=== PATIENT | female | born 1950 ===

== ENCOUNTER 2017-06-08 01:36 | Inpatient (IN) | payer MEDICARE, OTHER ==
[2017-06-08] MEDS ORDERED: Aspirin 325 mg EC Tablets PO STA (01:59)
--- NOTE | 2017-06-08 01:59 | C.PDOC ---
History Of Present Illness pt presents with left chest wall discomfort, occasionally radiating towards her neck on the left side. No f/c/n/v. heavy lifting. Speaking in complete sentences. Time Seen by Provider: 06/08/17 01:58 Chief Complaint (Nursing): Chest Pain History Per: Patient History/Exam Limitations: no limitations Onset/Duration Of Symptoms: Days Current Symptoms Are (Timing): Still Present Context: Other Severity: Severe Pain Scale Rating Of: 10 Recent travel outside of the [place]: No Additional History Per: EMS Past Medical History Vital Signs: Last Vital Signs Temp 97.8 F 06/08/17 01:47 Pulse 91 H 06/08/17 01:47 Resp 20 06/08/17 01:47 BP 166/89 H 06/08/17 01:47 Pulse Ox 99 06/08/17 02:33 - Medical History PMH: HTN, Hypercholesterolemia Family History: States: No Known Family Hx - Social History Hx Tobacco Use: No Hx Alcohol Use: No Hx Substance Use: No - Immunization History Hx Tetanus Toxoid Vaccination: No Hx Influenza Vaccination: No Hx Pneumococcal Vaccination: No Physical Exam - Physical Exam Appears: Non-toxic Skin: Warm, Dry Head: Normacephalic Eye(s): bilateral: Normal Inspection Oral Mucosa: Moist Neck: Supple Chest: Symmetrical Cardiovascular: Rhythm Regular Respiratory: No Rales, No Rhonchi, No Wheezing Gastrointestinal/Abdominal: Soft, No Tenderness, No Distention Back: No Normal Inspection Extremity: No Normal ROM Extremity: Bilateral: Atraumatic Pulses: Left Dorsalis Pedis: Normal, Right Dorsalis Pedis: Normal Neurological/Psych: Oriented x3, Normal Speech, Normal Cognition Gait: Steady ED Course And Treatment - Laboratory Results Result Diagrams: 06/08/17 02:20 06/08/17 02:20 ECG: Interpreted By Me, Viewed By Me ECG Rhythm: Sinus Rhythm (81), Nonspecific Changes O2 Sat by Pulse Oximetry: 99 Pulse Ox Interpretation: Normal - Radiology CXR: Interpreted by Me, Viewed By Me Disposition Discussed With : Miguelito Up Comment: accepted the pt on his service and took over the care at 3:11 AM Doctor Will See Patient In The: ED Counseled Patient/Family Regarding: Studies Performed, Diagnosis - Disposition Disposition: HOSPITALIZED Disposition Time: 02:26 Condition: FAIR Forms: [employer] ([place]ian) - POA Present On Arrival: Poor Glycemic Control - Clinical Impression Clinical Impression: Chest pain, Non-ST elevated myocardial infarction Decision To Admit - Pt Status Changed To: Hospital Disposition Of: Inpatient - Admit Certification Admit to Inpatient:: After my assessment, the patient will require hospitalization for at least two midnights. This is because of the severity of symptoms shown, intensity of services needed, and/or the medical risk in this patient being treated as an outpatient. - InPatient: Physician Admission Certification: I certify that this patient requires 2 or more midnights of care for the following reason:: After my assessment, the patient will require hospitalization for at least two midnights. This is because of the severity of symptoms shown, intensity of services needed, and/or the medical risk in this patient being treated as an outpatient. - . Bed Request Type: Telemetry Admitting Physician: Miguelito Up Patient Diagnosis: Chest pain, Non-ST elevated myocardial infarction
[2017-06-08] MEDS ORDERED: Aspirin 325 mg EC Tablets PO ONE (02:08)
[2017-06-08 02:27] LABS: BASO # 0.1 K/uL (0.0-0.2); EOS # 0.1 K/uL (0.0-0.7); EOS % 1.1 % (0.0-4.0); HEMOGLOBIN 13.3 g/dL (11.0-16.0); LYMPH # 2.9 K/uL (1.0-4.3); LYMPH % 32.1 % (20.0-40.0); MEAN CELL VOLUME 82.3 fL (81.0-99.0); MEAN CORPUSCULAR HEMOGLOBIN 27.8 pg (27.0-31.0); MEAN CORPUSCULAR HGB CONC 33.8 g/dL (33.0-37.0); MONO # 0.6 K/uL (0.0-0.8); MONO % 6.4 % (0.0-10.0); NEUT # 5.4 K/uL (1.8-7.0); NEUT % 59.4 % (50.0-75.0); NRBC % 0.1 % (0.0-2.0); RBC 4.77 Mil/uL (3.80-5.20); RED CELL DISTRIBUTION WIDTH 14.6 % (11.5-14.5); WHITE BLOOD COUNT 9.1 K/uL (4.8-10.8)
[2017-06-08 02:38] LABS: ALB/GLOB RATIO 1.1 (1.0-2.1); ALBUMIN 4.1 g/dL (3.5-5.0); ALT/SGPT 32 U/L (9-52); AST/SGOT 32 U/L (14-36); BLOOD UREA NITROGEN 10 mg/dL (7-17); CALCIUM 9.2 mg/dl (8.6-10.4); GFR AFRICAN-AMERICAN > 60; GFR NON-AFRICAN AMERICAN > 60
[2017-06-08 02:49] LABS: PROTHROMBIN TIME 11.6 SECONDS (9.7-12.2)
[2017-06-08 02:55] LABS: B-TYPE NATRIURETIC PEPTIDE 102 pg/mL (0-900)
[2017-06-08 03:58] LABS: URINE BACTERIA RARE (<OCC); URINE BILIRUBIN NEGATIVE (NEGATIVE); URINE CLARITY Clear (Clear); URINE COLOR Colorless (YELLOW); URINE GLUCOSE (UA) NORMAL (Normal); URINE LEUKOCYTE ESTERASE TRACE Leu/uL (Negative); URINE PROTEIN NEGATIVE (NEGATIVE); URINE UROBILINOGEN NORMAL mg/dL (0.2-1.0)
[2017-06-08 04:02] LABS: URINE BLOOD NEGATIVE (NEGATIVE)
--- NOTE | 2017-06-08 04:12 | CP.PCM.HP ---
<Neris Jarvis - Last Filed: 06/08/17 05:58> History of Present Illness - History of Present Illness History of Present Illness: CC: Chest pain 66 year old female with history of hypertension, hyperlipidemia and anxiety presents to the ED today complains of left sided chest pain. Patient reports her chest pain started this afternoon after 4pm when she was moving some furnitures at home. She describes the pain as burning in quality, radiates to her mid chest and left arm. Patient took aspirin and Dexilant at home which did not alleviate the pain. The chest became worse around 11pm which prompted patient to come to the ED. She had a stress test done many years ago and it was negative. Patient also reports to have shortness of breath associated with this chest pain, but she is unsure of its her anxiety or the chest pain that is causing the symptom. Patient denies headache, dizziness, fever, chills, nausea, vomiting or urinary symptoms. PMD: Dr. Snyder in [place] PMHx: HTN, HLD PSHx: knee replacement Allergy: none Social: social alcohol drinker, denies tobacco or other drug use Family Hx: Mother of [place] at age 70. Father had [place] around 70 years old, DM Medication: Dexilant, atorvastatin, bisoprolol, HCTZ, amlodipine, benazepril, ibuprofen Present on Admission - Present on Admission Any Indicators Present on Admission: No Review of Systems - Constitutional Constitutional: As Per HPI. absent: Chills, Fever - EENT Eyes: As Per HPI. absent: Blind Spots, Blurred Vision Ears: As Per HPI. absent: Abnormal Hearing, Dizziness Nose/Mouth/Throat: As Per HPI. absent: Nasal Congestion, Nose Pain - Breasts Breasts: As Per HPI - Cardiovascular Cardiovascular: As Per HPI, Chest Pain, Chest Pain at Rest, Dyspnea. absent: Diaphoresis, Leg Edema, Lightheadedness, Syncope - Respiratory Respiratory: As Per HPI, Dyspnea. absent: Cough, Wheezing - Gastrointestinal Gastrointestinal: As Per HPI. absent: Abdominal Pain, Nausea, Vomiting - Genitourinary Genitourinary: As Per HPI. absent: Change in Urinary Stream, Flank Pain - Reproductive: Female Reproductive:Female: As Per HPI - Menstruation Menstruation: As Per HPI - Musculoskeletal Musculoskeletal: As Per HPI. absent: Deformity, Joint Swelling - Integumentary Integumentary: As Per HPI. absent: Acne, Change in Nails - Neurological Neurological: As Per HPI. absent: Dizziness, Numbness - Psychiatric Psychiatric: As Per HPI, Anxiety - Endocrine Endocrine: As Per HPI - Hematologic/Lymphatic Hematologic: As Per HPI Past Patient History - Past Social History Smoking Status: Never Smoked - CARDIAC Hx Hypercholesterolemia: Yes Hx Hypertension: Yes - PSYCHIATRIC Hx Substance Use: No - SURGICAL HISTORY Other/Comment: right knee replacement - ANESTHESIA Hx Anesthesia: Yes Hx Anesthesia Reactions: No Meds Allergies/Adverse Reactions: Allergies Allergy/AdvReac Type Severity Reaction Status Date / Time No Known Allergies Allergy Unverified 06/08/17 01:51 Physical Exam - Constitutional Appears: Well, Non-toxic, No Acute Distress - Head Exam Head Exam: ATRAUMATIC - Eye Exam Eye Exam: EOMI, Normal appearance - ENT Exam ENT Exam: Mucous Membranes Moist - Neck Exam Neck exam: Positive for: Normal Inspection - Respiratory Exam Respiratory Exam: Clear to Auscultation Bilateral, NORMAL BREATHING PATTERN. absent: Wheezes, Respiratory Distress - Cardiovascular Exam Cardiovascular Exam: REGULAR RHYTHM, +S1, +S2 - GI/Abdominal Exam GI & Abdominal Exam: Normal Bowel Sounds, Soft. absent: Tenderness - Extremities Exam Extremities exam: Positive for: normal inspection. Negative for: pedal edema - Neurological Exam Neurological exam: Alert, Oriented x3 - Psychiatric Exam Psychiatric exam: Normal Affect, Normal Mood - Skin Skin Exam: Dry, Intact, Normal Color, Warm Results - Vital Signs Recent Vital Signs: Last Vital Signs Temp 97.8 F 06/08/17 01:47 Pulse 91 H 06/08/17 01:47 Resp 20 06/08/17 01:47 BP 166/89 H 06/08/17 01:47 Pulse Ox 99 06/08/17 03:14 - Labs Result Diagrams: 06/08/17 02:20 06/08/17 02:20 Labs: Laboratory Results - last 24 hr 06/08/17 06/08/17 06/08/17 01:59 02:20 02:20 WBC 9.1 RBC 4.77 Hgb 13.3 Hct 39.2 MCV 82.3 MCH 27.8 MCHC 33.8 RDW 14.6 H Plt Count 324 MPV 8.0 Neut % (Auto) 59.4 Lymph % (Auto) 32.1 [place] % (Auto) 6.4 Eos % (Auto) 1.1 Baso % (Auto) 1.0 Neut # (Auto) 5.4 Lymph # (Auto) 2.9 [place] # (Auto) 0.6 Eos # (Auto) 0.1 Baso # (Auto) 0.1 PT 11.6 INR 1.0 APTT 29 Sodium Potassium Chloride Carbon Dioxide Anion Gap BUN Creatinine Est GFR ( Amer) Est GFR (Non-Af Amer) Random Glucose Calcium Total Bilirubin AST ALT Alkaline Phosphatase Troponin I NT-Pro-B Natriuret Pep Total Protein Albumin Globulin Albumin/Globulin Ratio Urine Color Colorless Urine Clarity Clear Urine pH 6.0 Ur Specific [place] 1.001 L Urine Protein Negative Urine Glucose (UA) Normal Urine Ketones Negative Urine Blood Negative Urine Nitrate Negative Urine Bilirubin Negative Urine Urobilinogen Normal Ur Leukocyte Esterase Trace Urine WBC (Auto) 1 Urine RBC (Auto) < 1 Urine Bacteria Rare 06/08/17 02:20 WBC RBC Hgb Hct MCV MCH MCHC RDW Plt Count MPV Neut % (Auto) Lymph % (Auto) [place] % (Auto) Eos % (Auto) Baso % (Auto) Neut # (Auto) Lymph # (Auto) [place] # (Auto) Eos # (Auto) Baso # (Auto) PT INR APTT Sodium 140 Potassium 3.6 Chloride 102 Carbon Dioxide 21 L Anion Gap 21 H BUN 10 Creatinine 0.7 Est GFR ( Amer) > 60 Est GFR (Non-Af Amer) > 60 Random Glucose 108 H Calcium 9.2 Total Bilirubin 0.5 AST 32 ALT 32 Alkaline Phosphatase 131 H Troponin I 0.2070 H* NT-Pro-B Natriuret Pep 102 Total Protein 7.7 Albumin 4.1 Globulin 3.7 Albumin/Globulin Ratio 1.1 Urine Color Urine Clarity Urine pH Ur Specific [place] Urine Protein Urine Glucose (UA) Urine Ketones Urine Blood Urine Nitrate Urine Bilirubin Urine Urobilinogen Ur Leukocyte Esterase Urine WBC (Auto) Urine RBC (Auto) Urine Bacteria Assessment & Plan - Assessment and Plan (Free Text) Assessment: NSTEMI -Troponin 0.207, repeats pending -EKG shows slight T wave inversion on lead 3 -Nitroglycerin topical given -ASA 325mg -Plavix 75mg -Bisoprolol, lisinopril -Weight base heparin -Oxygen via NC -Cardiology consulted, Dr. Hyman help appreciated Anxiety -Xanax 0.25mg po Hypertension -Amlodipine 5mg -Bisoprolol/HCT 2.5/6.25mg -Lisinopril 20mg Hyperlipidemia -Crestor 5mg Prophylactic measures -Protonix -Heparin Discussed with attending physician <Miguelito Up - Last Filed: 06/08/17 07:42> Results - Vital Signs Recent Vital Signs: Last Vital Signs Temp 98.3 F 06/08/17 07:30 Pulse 71 06/08/17 07:30 Resp 17 06/08/17 07:30 BP 101/47 L 06/08/17 07:30 Pulse Ox 98 06/08/17 07:30 - Labs Result Diagrams: 06/08/17 02:20 06/08/17 02:20 Labs: Laboratory Results - last 24 hr 06/08/17 06/08/17 06/08/17 01:59 02:20 02:20 WBC 9.1 RBC 4.77 Hgb 13.3 Hct 39.2 MCV 82.3 MCH 27.8 MCHC 33.8 RDW 14.6 H Plt Count 324 MPV 8.0 Neut % (Auto) 59.4 Lymph % (Auto) 32.1 [place] % (Auto) 6.4 Eos % (Auto) 1.1 Baso % (Auto) 1.0 Neut # (Auto) 5.4 Lymph # (Auto) 2.9 [place] # (Auto) 0.6 Eos # (Auto) 0.1 Baso # (Auto) 0.1 PT 11.6 INR 1.0 APTT 29 Sodium Potassium Chloride Carbon Dioxide Anion Gap BUN Creatinine Est GFR ( Amer) Est GFR (Non-Af Amer) Random Glucose Calcium Total Bilirubin AST ALT Alkaline Phosphatase Troponin I NT-Pro-B Natriuret Pep Total Protein Albumin Globulin Albumin/Globulin Ratio Urine Color Colorless Urine Clarity Clear Urine pH 6.0 Ur Specific [place] 1.001 L Urine Protein Negative Urine Glucose (UA) Normal Urine Ketones Negative Urine Blood Negative Urine Nitrate Negative Urine Bilirubin Negative Urine Urobilinogen Normal Ur Leukocyte Esterase Trace Urine WBC (Auto) 1 Urine RBC (Auto) < 1 Urine Bacteria Rare 06/08/17 02:20 WBC RBC Hgb Hct MCV MCH MCHC RDW Plt Count MPV Neut % (Auto) Lymph % (Auto) [place] % (Auto) Eos % (Auto) Baso % (Auto) Neut # (Auto) Lymph # (Auto) [place] # (Auto) Eos # (Auto) Baso # (Auto) PT INR APTT Sodium 140 Potassium 3.6 Chloride 102 Carbon Dioxide 21 L Anion Gap 21 H BUN 10 Creatinine 0.7 Est GFR ( Amer) > 60 Est GFR (Non-Af Amer) > 60 Random Glucose 108 H Calcium 9.2 Total Bilirubin 0.5 AST 32 ALT 32 Alkaline Phosphatase 131 H Troponin I 0.2070 H* NT-Pro-B Natriuret Pep 102 Total Protein 7.7 Albumin 4.1 Globulin 3.7 Albumin/Globulin Ratio 1.1 Urine Color Urine Clarity Urine pH Ur Specific [place] Urine Protein Urine Glucose (UA) Urine Ketones Urine Blood Urine Nitrate Urine Bilirubin Urine Urobilinogen Ur Leukocyte Esterase Urine WBC (Auto) Urine RBC (Auto) Urine Bacteria Attending/Attestation - Attestation I have personally seen and examined this patient.: Yes I have fully participated in the care of the patient.: Yes I have reviewed all pertinent clinical information: Yes Notes (Text): NSTEMI with some pain/symptoms at time of evaluation, inferior t inversion noted , h/o htn, anxiety, hyperlipidimia. Plan Plavix loading ASA Heparin dirp Continue betablocker Continue home meds unless hypotensive, including statins. Cardiology consult for possible need of cath
[2017-06-08] MEDS ORDERED: Nitroglycerin 2% Ointment Foilpak UD TOP ONE (04:56)
[2017-06-08] MEDS ORDERED: Heparin25000 units/250ml 1/2NS 25,000 UNITS/250 ML BAG IV PRN (04:56)
[2017-06-08] MEDS: Heparin25000 units/250ml 1/2NS 25,000 UNITS/250 ML BAG IV SCH (05:56)
--- NOTE | 2017-06-08 08:23 | RAD ---
Chest x-ray single frontal view History: Chest pain. Comparison: 06/08/2017 Findings: Mild venous congestion. Biapical pleural thickening with upper lobe granulomatous changes. Small nodular density at the right lung base may represent prominent vessel on end. Tortuous ectatic aorta. Calcification at the aortic knob. Top normal heart size. Degenerative changes in the spine and shoulders. Impression: Mild venous congestion. Biapical pleural thickening with upper lobe granulomatous changes. Small nodular density at the right lung base may represent prominent vessel on end. Tortuous ectatic aorta. Calcification at the aortic knob. Top normal heart size.
[2017-06-08 08:49] LABS: CK-MB 2.99 ng/mL (0.0-3.38)
[2017-06-08 08:52] LABS: TROPONIN I 0.18 ng/mL (0.00-0.120)
[2017-06-08] MEDS: Pantoprazole 40 mg EC Tab PO SCH (09:56)
[2017-06-08] MEDS: Bisoprolol-HCTZ 2.5-6.25 mg Tab PO SCH (09:56)
[2017-06-08] MEDS ORDERED: Enoxaparin 40 mg Syringe SC SCH (10:00)
[2017-06-08] MEDS ORDERED: DEXILANT 60 MG PO SCH (10:00)
[2017-06-08 16:30] LABS: TROPONIN I 0.22 ng/mL (0.00-0.120)
[2017-06-08 16:54] LABS: CK-MB 2.77 ng/mL (0.0-3.38)
--- NOTE | 2017-06-08 17:08 | CP.PCM.CON ---
<Sumit Reyes - Last Filed: 06/08/17 20:10> History of Present Illness - History of Present Illness History of Present Illness: PGY [address] Hyman's cardiology service: Consult reason: Chest pain/NSTEMI Patient is 66 year old female, with PMHx of hypertension, hyperlipidemia and anxiety, presented to the ED on 06/07/17 complaining of left sided chest pain. Her chest pain started after moving "heavy furniture around home." Describes the pain as "burning/dull pain - like someone punched me in the chest" which radiated to her left chest, left arm, and jaw. Patient took aspirin and Dexilant at home which did not alleviate the pain. The chest pain worsened throughout the evening which prompted patient to come to the ED. Reports shortness of breath associated with this chest pain, but she is unsure of its her anxiety or the chest pain that is causing the symptom. Patient denies headache, dizziness, fever, chills, nausea, vomiting or urinary symptoms. Pt seen and examined at bedside surrounded by family in room 557B. Patient found lying in bed comfortably. She admits chest pain improved since presentation to the ED but admits still feeling "dull painful sensation in her chest" that no longer radiates. Pain worsened with palpation of the chest but not with exertion. Denies palpitations, shortness of breath at rest or exertion , or lower extremity edema. Admits history of stress test "15-20 years ago" after having bout of chest pain at that time. Denies following up with materials inspector recently. PMD: Dr. Snyder in [place] PMHx: HTN, HLD PSHx: knee replacement Allergy: none Social: social alcohol drinker, denies tobacco or other drug use Family Hx: Mother of NH at age 70. Father had NH around 70 years old, DM Medication: Dexilant, atorvastatin, bisoprolol, HCTZ, amlodipine, benazepril, ibuprofen Review of Systems - Constitutional Constitutional: absent: Anorexia, Chills, Fever - EENT Eyes: absent: Change in Vision - Cardiovascular Cardiovascular: Chest Pain. absent: Dyspnea, Dyspnea on Exertion, Leg Edema - Respiratory Respiratory: absent: Cough, Dyspnea, Dyspnea on Exertion - Gastrointestinal Gastrointestinal: absent: Abdominal Pain, Nausea, Vomiting - Genitourinary Genitourinary: absent: Dysuria - Musculoskeletal Musculoskeletal: absent: Numbness, Tingling - Integumentary Integumentary: absent: Wounds, Jaundice - Neurological Neurological: absent: Tingling, Weakness - Psychiatric Psychiatric: absent: Anxiety - Endocrine Endocrine: absent: Fatigue, Palpitations Past Patient History - Past Medical History & Family History Past Medical History?: Yes - Past Social History Smoking Status: Never Smoked - CARDIAC Hx Cardiac Disorders: Yes Hx Hypercholesterolemia: Yes Hx Hypertension: Yes - PULMONARY Hx Respiratory Disorders: No - NEUROLOGICAL Hx Neurological Disorder: No - HEENT Hx HEENT Problems: No - RENAL Hx Chronic Kidney Disease: No - ENDOCRINE/METABOLIC Hx Endocrine Disorders: No - HEMATOLOGICAL/ONCOLOGICAL Hx Blood Disorders: No - INTEGUMENTARY Hx Dermatological Problems: No - MUSCULOSKELETAL/RHEUMATOLOGICAL Hx Musculoskeletal Disorders: Yes Hx Arthritis: Yes Hx Falls: No - GASTROINTESTINAL Hx Gastrointestinal Disorders: Yes Hx Gastroesophageal Reflux: Yes - GENITOURINARY/GYNECOLOGICAL Hx Genitourinary Disorders: No - PSYCHIATRIC Hx Psychophysiologic Disorder: Yes Hx Anxiety: Yes Hx Substance Use: No - SURGICAL HISTORY Hx Surgeries: Yes Hx Orthopedic Surgery: Yes (left arm fracture) Other/Comment: right knee replacement - ANESTHESIA Hx Anesthesia: Yes Hx Anesthesia Reactions: Yes (nausea and vomiting) Hx Malignant Hyperthermia: No Has any member of the family had a problem w/ anesthesia?: No Meds Allergies/Adverse Reactions: Allergies Allergy/AdvReac Type Severity Reaction Status Date / Time No Known Allergies Allergy Unverified 06/08/17 01:51 - Medications Medications: Current Medications Amlodipine Besylate (Norvasc) 5 mg PO DAILY [facility] Last Admin: 06/08/17 09:56 Dose: 5 mg Aspirin (Aspirin) 325 mg PO DAILY [facility] Bisoprolol Fumarate/HCTZ (Ziac 2.5-6.25 Mg) 1 tab PO DAILY [facility] Last Admin: 06/08/17 09:56 Dose: 1 tab Clopidogrel Bisulfate (Plavix) 75 mg PO DAILY [facility] Heparin Sodium/Sodium Chloride (Heparin 03535 Units/250ml 1/2 Normal Saline) 25 ,000 units in 250 mls @ 10.886 mls/hr IV .[id number] [facility]; 12 UNITS/KG/HR PRN Reason: Protocol Last Admin: 06/08/17 05:56 Dose: 12 units/kg/hr, 10.886 mls/hr Lisinopril (Zestril) 20 mg PO DAILY [facility] Last Admin: 06/08/17 09:56 Dose: 20 mg Morphine Sulfate (Morphine) 2 mg IV Q6 PRN PRN Reason: Other Nitroglycerin (Nitrostat Sl Tab) 0.4 mg SL Q5M PRN PRN Reason: Other Pantoprazole Sodium (Protonix Ec Tab) 40 mg PO DAILY [facility] Last Admin: 06/08/17 09:56 Dose: 40 mg Rosuvastatin Calcium (Crestor) 5 mg PO [facility] Physical Exam - Additional Findings Additional findings: - Constitutional Appears: Well, Non-toxic, No Acute Distress - Head Exam Head Exam: ATRAUMATIC - Eye Exam Eye Exam: EOMI, Normal appearance - ENT Exam ENT Exam: Mucous Membranes Moist - Neck Exam Neck exam: Positive for: Normal Inspection - no jvd appreciated - Respiratory Exam Respiratory Exam: Clear to Auscultation Bilateral, NORMAL BREATHING PATTERN. absent: Wheezes, Respiratory Distress - Cardiovascular Exam Cardiovascular Exam: REGULAR RHYTHM, +S1, +S2 - GI/Abdominal Exam GI & Abdominal Exam: Normal Bowel Sounds, Soft. absent: Tenderness - Extremities Exam Extremities exam: Positive for: normal inspection. Negative for: pedal edema - Neurological Exam Neurological exam: Alert, Oriented x3 - Psychiatric Exam Psychiatric exam: Normal Affect, Normal Mood - Skin Skin Exam: Dry, Intact, Normal Color, Warm Results - Vital Signs Recent Vital Signs: Last Vital Signs Temp 97.9 F 06/08/17 16:13 Pulse 65 06/08/17 16:13 Resp 18 06/08/17 16:13 BP 103/68 06/08/17 16:13 Pulse Ox 97 06/08/17 16:13 - Labs Result Diagrams: 06/08/17 02:20 06/08/17 02:20 Labs: Laboratory Results - last 24 hr 06/08/17 06/08/17 06/08/17 01:59 02:20 02:20 WBC 9.1 RBC 4.77 Hgb 13.3 Hct 39.2 MCV 82.3 MCH 27.8 MCHC 33.8 RDW 14.6 H Plt Count 324 MPV 8.0 Neut % (Auto) 59.4 Lymph % (Auto) 32.1 Cameron % (Auto) 6.4 Eos % (Auto) 1.1 Baso % (Auto) 1.0 Neut # (Auto) 5.4 Lymph # (Auto) 2.9 Cameron # (Auto) 0.6 Eos # (Auto) 0.1 Baso # (Auto) 0.1 PT 11.6 INR 1.0 APTT 29 Sodium Potassium Chloride Carbon Dioxide Anion Gap BUN Creatinine Est GFR ( Amer) Est GFR (Non-Af Amer) Random Glucose Calcium Total Bilirubin AST ALT Alkaline Phosphatase Total Creatine Kinase CK-MB (Mass) Troponin I NT-Pro-B Natriuret Pep Total Protein Albumin Globulin Albumin/Globulin Ratio Urine Color Colorless Urine Clarity Clear Urine pH 6.0 Ur Specific [place] 1.001 L Urine Protein Negative Urine Glucose (UA) Normal Urine Ketones Negative Urine Blood Negative Urine Nitrate Negative Urine Bilirubin Negative Urine Urobilinogen Normal Ur Leukocyte Esterase Trace Urine WBC (Auto) 1 Urine RBC (Auto) < 1 Urine Bacteria Rare 06/08/17 06/08/17 06/08/17 02:20 08:16 12:29 WBC RBC Hgb Hct MCV MCH MCHC RDW Plt Count MPV Neut % (Auto) Lymph % (Auto) Cameron % (Auto) Eos % (Auto) Baso % (Auto) Neut # (Auto) Lymph # (Auto) Cameron # (Auto) Eos # (Auto) Baso # (Auto) PT INR APTT 56 H D Sodium 140 Potassium 3.6 Chloride 102 Carbon Dioxide 21 L Anion Gap 21 H BUN 10 Creatinine 0.7 Est GFR ( Amer) > 60 Est GFR (Non-Af Amer) > 60 Random Glucose 108 H Calcium 9.2 Total Bilirubin 0.5 AST 32 ALT 32 Alkaline Phosphatase 131 H Total Creatine Kinase 217 H CK-MB (Mass) 2.99 Troponin I 0.2070 H* 0.1800 H* NT-Pro-B Natriuret Pep 102 Total Protein 7.7 Albumin 4.1 Globulin 3.7 Albumin/Globulin Ratio 1.1 Urine Color Urine Clarity Urine pH Ur Specific [place] Urine Protein Urine Glucose (UA) Urine Ketones Urine Blood Urine Nitrate Urine Bilirubin Urine Urobilinogen Ur Leukocyte Esterase Urine WBC (Auto) Urine RBC (Auto) Urine Bacteria 06/08/17 15:51 WBC RBC Hgb Hct MCV MCH MCHC RDW Plt Count MPV Neut % (Auto) Lymph % (Auto) Cameron % (Auto) Eos % (Auto) Baso % (Auto) Neut # (Auto) Lymph # (Auto) Cameron # (Auto) Eos # (Auto) Baso # (Auto) PT INR APTT Sodium Potassium Chloride Carbon Dioxide Anion Gap BUN Creatinine Est GFR ( Amer) Est GFR (Non-Af Amer) Random Glucose Calcium Total Bilirubin AST ALT Alkaline Phosphatase Total Creatine Kinase 253 H CK-MB (Mass) 2.77 Troponin I NT-Pro-B Natriuret Pep Total Protein Albumin Globulin Albumin/Globulin Ratio Urine Color Urine Clarity Urine pH Ur Specific [place] Urine Protein Urine Glucose (UA) Urine Ketones Urine Blood Urine Nitrate Urine Bilirubin Urine Urobilinogen Ur Leukocyte Esterase Urine WBC (Auto) Urine RBC (Auto) Urine Bacteria Assessment & Plan - Assessment and Plan (Free Text) Plan: NSTEMI Admit to tele -Troponin 0.207, 0.18, 0.22 -EKG (06/08/17) shows slight T wave inversion on lead 3, No ST elevation appreciated -Heparin Drip -ASA 325mg -Plavix 75mg -Bisoprolol/Lisinoprin Pt for cardiac cath @ ~ 3pm on 06/09/17 - pt NPO after breakfast - heparin drip to run until cardiac cath Hypertension -Amlodipine 5mg -Bisoprolol/HCT 2.5/6.25mg -Lisinopril 20mg Hyperlipidemia -Crestor 5mg Sumit Reyes PGY-[address] Hyman <Luis Manuel Hyman - Last Filed: 06/08/17 23:40> Meds - Medications Medications: Current Medications Acetaminophen (Tylenol 325mg Tab) 650 mg PO Q6 PRN PRN Reason: Pain, Mild (1-3) Last Admin: 06/08/17 21:10 Dose: 650 mg Amlodipine Besylate (Norvasc) 5 mg PO DAILY [facility] Last Admin: 06/08/17 09:56 Dose: 5 mg Aspirin (Aspirin) 325 mg PO DAILY [facility] Bisoprolol Fumarate/HCTZ (Ziac 2.5-6.25 Mg) 1 tab PO DAILY [facility] Last Admin: 06/08/17 09:56 Dose: 1 tab Clopidogrel Bisulfate (Plavix) 75 mg PO DAILY [facility] Heparin Sodium/Sodium Chloride (Heparin 37313 Units/250ml 1/2 Normal Saline) 25 ,000 units in 250 mls @ 10.886 mls/hr IV .[id number] [facility]; 12 UNITS/KG/HR PRN Reason: Protocol Last Admin: 06/08/17 05:56 Dose: 12 units/kg/hr, 10.886 mls/hr Lisinopril (Zestril) 20 mg PO DAILY [facility] Last Admin: 06/08/17 09:56 Dose: 20 mg Morphine Sulfate (Morphine) 2 mg IV Q6 PRN PRN Reason: Other Nitroglycerin (Nitrostat Sl Tab) 0.4 mg SL Q5M PRN PRN Reason: Other Pantoprazole Sodium (Protonix Ec Tab) 40 mg PO DAILY [facility] Last Admin: 06/08/17 09:56 Dose: 40 mg Rosuvastatin Calcium (Crestor) 5 mg PO HS [facility] Last Admin: 06/08/17 21:11 Dose: 5 mg Results - Vital Signs Recent Vital Signs: Last Vital Signs Temp 97.9 F 06/08/17 16:13 Pulse 65 06/08/17 16:13 Resp 18 06/08/17 16:13 BP 103/68 06/08/17 16:13 Pulse Ox 97 06/08/17 16:13 - Labs Result Diagrams: 06/08/17 02:20 06/08/17 02:20 Labs: Laboratory Results - last 24 hr 06/08/17 06/08/17 06/08/17 01:59 02:20 02:20 WBC 9.1 RBC 4.77 Hgb 13.3 Hct 39.2 MCV 82.3 MCH 27.8 MCHC 33.8 RDW 14.6 H Plt Count 324 MPV 8.0 Neut % (Auto) 59.4 Lymph % (Auto) 32.1 Cameron % (Auto) 6.4 Eos % (Auto) 1.1 Baso % (Auto) 1.0 Neut # (Auto) 5.4 Lymph # (Auto) 2.9 Cameron # (Auto) 0.6 Eos # (Auto) 0.1 Baso # (Auto) 0.1 PT 11.6 INR 1.0 APTT 29 Sodium Potassium Chloride Carbon Dioxide Anion Gap BUN Creatinine Est GFR ( Amer) Est GFR (Non-Af Amer) Random Glucose Calcium Total Bilirubin AST ALT Alkaline Phosphatase Total Creatine Kinase CK-MB (Mass) Troponin I NT-Pro-B Natriuret Pep Total Protein Albumin Globulin Albumin/Globulin Ratio Urine Color Colorless Urine Clarity Clear Urine pH 6.0 Ur Specific [place] 1.001 L Urine Protein Negative Urine Glucose (UA) Normal Urine Ketones Negative Urine Blood Negative Urine Nitrate Negative Urine Bilirubin Negative Urine Urobilinogen Normal Ur Leukocyte Esterase Trace Urine WBC (Auto) 1 Urine RBC (Auto) < 1 Urine Bacteria Rare 06/08/17 06/08/17 06/08/17 02:20 08:16 12:29 WBC RBC Hgb Hct MCV MCH MCHC RDW Plt Count MPV Neut % (Auto) Lymph % (Auto) Cameron % (Auto) Eos % (Auto) Baso % (Auto) Neut # (Auto) Lymph # (Auto) Cameron # (Auto) Eos # (Auto) Baso # (Auto) PT INR APTT 56 H D Sodium 140 Potassium 3.6 Chloride 102 Carbon Dioxide 21 L Anion Gap 21 H BUN 10 Creatinine 0.7 Est GFR ( Amer) > 60 Est GFR (Non-Af Amer) > 60 Random Glucose 108 H Calcium 9.2 Total Bilirubin 0.5 AST 32 ALT 32 Alkaline Phosphatase 131 H Total Creatine Kinase 217 H CK-MB (Mass) 2.99 Troponin I 0.2070 H* 0.1800 H* NT-Pro-B Natriuret Pep 102 Total Protein 7.7 Albumin 4.1 Globulin 3.7 Albumin/Globulin Ratio 1.1 Urine Color Urine Clarity Urine pH Ur Specific [place] Urine Protein Urine Glucose (UA) Urine Ketones Urine Blood Urine Nitrate Urine Bilirubin Urine Urobilinogen Ur Leukocyte Esterase Urine WBC (Auto) Urine RBC (Auto) Urine Bacteria 06/08/17 06/08/17 15:51 18:04 WBC RBC Hgb Hct MCV MCH MCHC RDW Plt Count MPV Neut % (Auto) Lymph % (Auto) Cameron % (Auto) Eos % (Auto) Baso % (Auto) Neut # (Auto) Lymph # (Auto) Cameron # (Auto) Eos # (Auto) Baso # (Auto) PT INR APTT 51 H D Sodium Potassium Chloride Carbon Dioxide Anion Gap BUN Creatinine Est GFR ( Amer) Est GFR (Non-Af Amer) Random Glucose Calcium Total Bilirubin AST ALT Alkaline Phosphatase Total Creatine Kinase 253 H CK-MB (Mass) 2.77 Troponin I 0.2200 H* NT-Pro-B Natriuret Pep Total Protein Albumin Globulin Albumin/Globulin Ratio Urine Color Urine Clarity Urine pH Ur Specific [place] Urine Protein Urine Glucose (UA) Urine Ketones Urine Blood Urine Nitrate Urine Bilirubin Urine Urobilinogen Ur Leukocyte Esterase Urine WBC (Auto) Urine RBC (Auto) Urine Bacteria Assessment & Plan - Assessment and Plan (Free Text) Plan: Patient seen and evaluated by me Plan of care d/w the medical secretary receptionist and as documented
--- NOTE | 2017-06-08 21:02 | CP.PCM.PN ---
Subjective - Date & Time of Evaluation Date of Evaluation: 06/08/17 Time of Evaluation: 08:10 - Subjective Subjective: Medicine progress note ( Dr. Bullock's service) Patient was seen and examined at bedside in the ED. Patient admits to intermittent chest pain with no radiation and very mild shortness of breath. Patient denies fever, chills, nausea, vomiting, diaphoresis, headache, blurry vision and numbness and tingling. Objective - Vital Signs/Intake and Output Vital Signs (last 24 hours): Temp Pulse Resp BP Pulse Ox 97.9 F 65 18 103/68 97 06/08/17 16:13 06/08/17 16:13 06/08/17 16:13 06/08/17 16:13 06/08/17 16:13 - Medications Medications: Current Medications Amlodipine Besylate (Norvasc) 5 mg PO DAILY [facility] Last Admin: 06/08/17 09:56 Dose: 5 mg Aspirin (Aspirin) 325 mg PO DAILY [facility] Bisoprolol Fumarate/HCTZ (Ziac 2.5-6.25 Mg) 1 tab PO DAILY [facility] Last Admin: 06/08/17 09:56 Dose: 1 tab Clopidogrel Bisulfate (Plavix) 75 mg PO DAILY [facility] Heparin Sodium/Sodium Chloride (Heparin 45934 Units/250ml 1/2 Normal Saline) 25 ,000 units in 250 mls @ 10.886 mls/hr IV .[id number] [facility]; 12 UNITS/KG/HR PRN Reason: Protocol Last Admin: 06/08/17 05:56 Dose: 12 units/kg/hr, 10.886 mls/hr Lisinopril (Zestril) 20 mg PO DAILY [facility] Last Admin: 06/08/17 09:56 Dose: 20 mg Morphine Sulfate (Morphine) 2 mg IV Q6 PRN PRN Reason: Other Nitroglycerin (Nitrostat Sl Tab) 0.4 mg SL Q5M PRN PRN Reason: Other Pantoprazole Sodium (Protonix Ec Tab) 40 mg PO DAILY [facility] Last Admin: 06/08/17 09:56 Dose: 40 mg Rosuvastatin Calcium (Crestor) 5 mg PO HS [facility] - Labs Labs: 06/08/17 02:20 06/08/17 02:20 PT 11.6 SECONDS (9.7-12.2) 06/08/17 02:20 INR 1.0 06/08/17 02:20 APTT 51 SECONDS (21-34) H D 06/08/17 18:04 - Constitutional Appears: No Acute Distress - Head Exam Head Exam: ATRAUMATIC, NORMAL INSPECTION - Eye Exam Eye Exam: EOMI - ENT Exam ENT Exam: Mucous Membranes Moist - Respiratory Exam Respiratory Exam: Clear to Ausculation Bilateral, NORMAL BREATHING PATTERN. absent: Rhonchi, Wheezes, Respiratory Distress - Cardiovascular Exam Cardiovascular Exam: REGULAR RHYTHM, +S1, +S2 - GI/Abdominal Exam GI & Abdominal Exam: Soft, Normal Bowel Sounds. absent: Distended, Firm, Guarding, Rigid, Tenderness - Extremities Exam Extremities Exam: Normal Inspection. absent: Calf Tenderness, Pedal Edema - Neurological Exam Neurological Exam: Alert, Awake, Oriented x3 - Psychiatric Exam Psychiatric exam: Anxious - Skin Skin Exam: Normal Color Assessment and Plan (1) Non-ST elevated myocardial infarction Assessment & Plan: [employer], Dr. Hyman on board---> Help appreciated * Plans for cardiac catherization tomorrow, 06/09/17 Labs: Troponin: 0.2070-->0.1800--->0.220 -EKG (06/08/17): No ST elevation appreciated, slight T wave inversion on lead 3 Medications: -Heparin Drip -ASA 325mg -Plavix 75mg -Bisoprolol fumarate/ 2.5 po daily -Lisinopril 20mg PO daily -Crestor 5mg PO daily -Morphine 2mg IV Q6H PRN -Nitro SL 0.4MG q5m prn Status: Acute (2) Hypertension Assessment & Plan: -Amlodipine 5mg -Bisoprolol/HCT 2.5/6.25mg -Lisinopril 20mg Status: Acute (3) Hyperlipidemia Status: Acute (4) Prophylactic measure Assessment & Plan: DVT: Heparin drip GI: Pepcid 20mg PO BID All plans and management discussed with Dr. Bullock Status: Acute
[2017-06-09] MEDS: Heparin25000 units/250ml 1/2NS 25,000 UNITS/250 ML BAG IV SCH (04:30)
[2017-06-09] MEDS ORDERED: Bisacodyl 5mg EC Tab PO ONE ×2 (07:30→08:45)
[2017-06-09 07:37] LABS: PROTHROMBIN TIME 11.4 SECONDS (9.7-12.2)
[2017-06-09 07:39] LABS: BASO % 0.7 % (0.0-2.0); EOS # 0.1 K/uL (0.0-0.7); EOS % 2.1 % (0.0-4.0); HEMOGLOBIN 12.3 g/dL (11.0-16.0); LYMPH # 2.9 K/uL (1.0-4.3); LYMPH % 42.6 % (20.0-40.0); MEAN CELL VOLUME 83.2 fL (81.0-99.0); MEAN CORPUSCULAR HGB CONC 33.7 g/dL (33.0-37.0); MONO # 0.5 K/uL (0.0-0.8); MONO % 7.4 % (0.0-10.0); NEUT # 3.2 K/uL (1.8-7.0); NEUT % 47.2 % (50.0-75.0); RBC 4.4 Mil/uL (3.80-5.20); RED CELL DISTRIBUTION WIDTH 15.1 % (11.5-14.5); WHITE BLOOD COUNT 6.7 K/uL (4.8-10.8)
[2017-06-09 07:46] LABS: ALB/GLOB RATIO 1.1 (1.0-2.1); ALBUMIN 3.7 g/dL (3.5-5.0); ALT/SGPT 27 U/L (9-52); AST/SGOT 30 U/L (14-36); BLOOD UREA NITROGEN 14 mg/dL (7-17); GFR AFRICAN-AMERICAN > 60; GFR NON-AFRICAN AMERICAN > 60; HDL CHOLESTEROL 36 mg/dL (30-70)
[2017-06-09 07:57] LABS: LDL CHOLESTEROL 77 mg/dL (0-129)
[2017-06-09] MEDS: Bisoprolol-HCTZ 2.5-6.25 mg Tab PO SCH (10:03)
[2017-06-09] MEDS: Pantoprazole 40 mg EC Tab PO SCH (10:04)
--- NOTE | 2017-06-09 15:03 | CP.PCM.PN ---
Subjective - Date & Time of Evaluation Date of Evaluation: 06/09/17 Time of Evaluation: 07:20 - Subjective Subjective: Medicine progress note ( Dr. Bullock's service) Patient was seen and examined at bedside with and granddaughter present. Patient admits to improving intermittent chest pain. Patient denies fever, chills, SOB, nausea, vomiting, diaphoresis, headache, blurry vision and numbness and tingling. Patient is aware that she is having a cardiac catherization as discussed with the medical team as well as [employer], Dr. mcgee. Objective - Vital Signs/Intake and Output Vital Signs (last 24 hours): Temp Pulse Resp BP Pulse Ox 97.2 F L 78 20 122/65 98 06/09/17 07:42 06/09/17 07:42 06/09/17 07:42 06/09/17 07:42 06/09/17 07:42 Intake and Output: 06/09/17 06/09/17 06:59 18:59 Intake Total 250 Balance 250 - Medications Medications: Current Medications Acetaminophen (Tylenol 325mg Tab) 650 mg PO Q6 PRN PRN Reason: Pain, Mild (1-3) Last Admin: 06/09/17 03:15 Dose: 650 mg Amlodipine Besylate (Norvasc) 5 mg PO DAILY [facility] Last Admin: 06/09/17 10:04 Dose: 5 mg Aspirin (Aspirin) 325 mg PO DAILY [facility] Last Admin: 06/09/17 10:03 Dose: 325 mg Bisoprolol Fumarate/HCTZ (Ziac 2.5-6.25 Mg) 1 tab PO DAILY [facility] Last Admin: 06/09/17 10:03 Dose: 1 tab Clopidogrel Bisulfate (Plavix) 75 mg PO DAILY [facility] Last Admin: 06/09/17 10:04 Dose: 75 mg Docusate Sodium (Colace) 100 mg PO BID [facility] Last Admin: 06/09/17 10:04 Dose: 100 mg Heparin Sodium/Sodium Chloride (Heparin 56255 Units/250ml 1/2 Normal Saline) 25 ,000 units in 250 mls @ 10.886 mls/hr IV .[id number] [facility]; 12 UNITS/KG/HR PRN Reason: Protocol Last Admin: 06/09/17 04:30 Dose: 12 units/kg/hr, 10.886 mls/hr Lisinopril (Zestril) 20 mg PO DAILY [facility] Last Admin: 06/09/17 10:04 Dose: 20 mg Morphine Sulfate (Morphine) 2 mg IV Q6 PRN PRN Reason: Other Nitroglycerin (Nitrostat Sl Tab) 0.4 mg SL Q5M PRN PRN Reason: Other Pantoprazole Sodium (Protonix Ec Tab) 40 mg PO DAILY [facility] Last Admin: 06/09/17 10:04 Dose: 40 mg Rosuvastatin Calcium (Crestor) 5 mg PO HS [facility] Last Admin: 06/08/17 21:11 Dose: 5 mg - Labs Labs: 06/09/17 07:21 06/09/17 07:21 PT 11.4 SECONDS (9.7-12.2) 06/09/17 07:21 INR 1.0 06/09/17 07:21 APTT 59 SECONDS (21-34) H D 06/09/17 07:21 - Constitutional Appears: Well, No Acute Distress - Head Exam Head Exam: ATRAUMATIC - Eye Exam Eye Exam: EOMI, Normal appearance - ENT Exam ENT Exam: Mucous Membranes Moist - Respiratory Exam Respiratory Exam: Clear to Ausculation Bilateral, NORMAL BREATHING PATTERN. absent: Chest Wall Tenderness, Decreased Breath Sounds, Rhonchi, Wheezes - Cardiovascular Exam Cardiovascular Exam: REGULAR RHYTHM, +S1, +S2. absent: Murmur - GI/Abdominal Exam GI & Abdominal Exam: Soft, Normal Bowel Sounds. absent: Distended, Guarding, Rigid, Tenderness - Extremities Exam Extremities Exam: Normal Inspection - Back Exam Back Exam: NORMAL INSPECTION - Neurological Exam Neurological Exam: Alert, Awake, Oriented x3 - Psychiatric Exam Psychiatric exam: Normal Affect, Normal Mood - Skin Skin Exam: Normal Color Assessment and Plan (1) Non-ST elevated myocardial infarction Assessment & Plan: [employer], Dr. Mcgee on board---> Help appreciated * Plans for cardiac catherization today,06/09/17; will await official report Labs: Troponin: 0.2070-->0.1800--->0.220 Lipid panel: TGL: 124, Chol: 136, LDL:77, HDL:36 TSH/Free T4: 1.37/1.21 Hgb A1C: 6.0 -EKG (06/08/17): No ST elevation appreciated, slight T wave inversion on lead 3 Medications: -Heparin Drip -ASA 325mg -Plavix 75mg -Bisoprolol fumarate/ 2.5 po daily -Lisinopril 20mg PO daily -Crestor 5mg PO daily -Morphine 2mg IV Q6H PRN -Nitro SL 0.4MG q5m prn Status: Acute (2) Hypertension Assessment & Plan: Controlled with medication -Amlodipine 5mg -Bisoprolol/HCT 2.5/6.25mg -Lisinopril 20mg Status: Acute (3) Hyperlipidemia Assessment & Plan: Labs: Lipid panel: TGL: 124, Chol: 136, LDL:77, HDL:36 Crestor 5mg PO HS Status: Acute (4) Glucose intolerance (impaired glucose tolerance) Assessment & Plan: Hgb A1C: 6.0 Counselled life style modification Status: Acute (5) Constipation Assessment & Plan: Colace 100mg PO BID Ducloclax 5mg PO daily Status: Acute (6) History of anxiety Assessment & Plan: Psychiatry consult--> Dr. Mccall * Management as per recommendation Status: Acute (7) Prophylactic measure Assessment & Plan: DVT: Heparin drip GI: Pepcid 20mg PO BID All plans and management discussed with Dr. Bullock Status: Acute
[2017-06-09] MEDS ORDERED: Lidocaine 4% (Laryng-O-Jet) Kit MM ONE (15:39)
[2017-06-09] MEDS ORDERED: Verapamil 2 ML ONE (15:40)
[2017-06-09] MEDS ORDERED: Nitroglycerin 50mg in D5W 50 MG/250 ML BOTTLE IV ONE (15:41)
[2017-06-09] MEDS ORDERED: Midazolam 2 MG/2 ML VIAL ONE (15:46)
[2017-06-09] MEDS ORDERED: Iohexol 350mg/ml 100 ML ONE ×2 (16:07→16:40)
[2017-06-09] MEDS ORDERED: Sodium Chloride 0.9% 1,000 ML IV SCH (17:00)
--- NOTE | 2017-06-09 17:08 | CP.PCM.PN ---
Subjective - Date & Time of Evaluation Date of Evaluation: 06/09/17 Time of Evaluation: 17:07 - Subjective Subjective: Patient s/p cath Normal Coronaries Normal EF D/C ASA. Plavix and IV Heparin Ambulate after 9pm tonight Objective - Vital Signs/Intake and Output Vital Signs (last 24 hours): Temp Pulse Resp BP Pulse Ox 97.2 F L 78 20 122/65 98 06/09/17 07:42 06/09/17 07:42 06/09/17 07:42 06/09/17 07:42 06/09/17 07:42 Intake and Output: 06/09/17 06/09/17 06:59 18:59 Intake Total 250 200 Balance 250 200 - Medications Medications: Current Medications Acetaminophen (Tylenol 325mg Tab) 650 mg PO Q6 PRN PRN Reason: Pain, Mild (1-3) Last Admin: 06/09/17 03:15 Dose: 650 mg Amlodipine Besylate (Norvasc) 5 mg PO DAILY [facility] Last Admin: 06/09/17 10:04 Dose: 5 mg Bisoprolol Fumarate/HCTZ (Ziac 2.5-6.25 Mg) 1 tab PO DAILY [facility] Last Admin: 06/09/17 10:03 Dose: 1 tab Docusate Sodium (Colace) 100 mg PO BID [facility] Last Admin: 06/09/17 10:04 Dose: 100 mg Enoxaparin Sodium (Lovenox) 40 mg SC DAILY [facility] Lisinopril (Zestril) 20 mg PO DAILY [facility] Last Admin: 06/09/17 10:04 Dose: 20 mg Morphine Sulfate (Morphine) 2 mg IV Q6 PRN PRN Reason: Other Nitroglycerin (Nitrostat Sl Tab) 0.4 mg SL Q5M PRN PRN Reason: Other Pantoprazole Sodium (Protonix Ec Tab) 40 mg PO DAILY [facility] Last Admin: 06/09/17 10:04 Dose: 40 mg Rosuvastatin Calcium (Crestor) 5 mg PO HS [facility] Last Admin: 06/08/17 21:11 Dose: 5 mg - Labs Labs: 06/09/17 07:21 06/09/17 07:21 PT 11.4 SECONDS (9.7-12.2) 06/09/17 07:21 INR 1.0 06/09/17 07:21 APTT 59 SECONDS (21-34) H D 04/10/18 07:21
[2017-06-09] MEDS ORDERED: Sodium Chloride 0.45% 1,000 ML IV SCH (17:15)
--- NOTE | 2017-06-09 17:18 | CARD ---
APPROVED REPORT EKG Measurement Heart [id number] SD 128P6 [id number] <Conclusion> Normal sinus rhythm Moderate voltage criteria for LVH, may be normal variant Nonspecific T wave abnormality Prolonged QT Abnormal ECG
--- NOTE | 2017-06-09 17:19 | CARD ---
APPROVED REPORT EKG Measurement Heart [id number] DC 126P29 [id number] <Conclusion> Normal sinus rhythm Moderate voltage criteria for LVH, may be normal variant Borderline ECG
--- NOTE | 2017-06-09 23:04 | CARD ---
APPROVED REPORT EXAM: Two-dimensional and M-mode echocardiogram with Doppler and color Doppler. Other Information Quality : GoodRhythm : INDICATION Chest Pain Non STEMI RISK FACTORS Hypertension Hyperlipidemia 2D DIMENSIONS IVSd1.1 (0.7-1.1cm)LVDd4.4 (3.9-5.9cm) PWd1.0 (0.7-1.1cm)LVDs2.7 (2.5-4.0cm) FS (%) 38.4 %LVEF (%)68.9 (>50%) M-Mode DIMENSIONS RVDd1.52 (2.1-3.2cm)Left Atrium (MM)3.49 (2.5-4.0cm) IVSd1.14 (0.7-1.1cm)Aortic Root3.24 (2.2-3.7cm) LVDd4.50 (4.0-5.6cm)Aortic Cusp Exc.2.07 (1.5-2.0cm) PWd1.09 (0.7-1.1cm)FS (%) 41 % LVDs2.66 (2.0-3.8cm)LVEF (%)72 (>50%) Aortic Valve AI P 1/2 [id number] Mitral Valve MV E Xipqqnjp203.2cm/sMV A Xeiwvhiq882.6cm/sE/A ratio0.8 TDI E/Lateral E'0.0E/Medial E'0.0 Tricuspid Valve TR Peak Narexpmg388ee/sTR Peak Gr.[id number] LEFT VENTRICLE The left ventricle is normal size. There is normal left ventricular wall thickness. Left ventricle systolic function is normal. The Ejection Fraction is >70%. There is normal LV segmental wall motion. The left ventricular diastolic function is abnormal. Transmitral Doppler flow pattern is Grade I-abnormal relaxation pattern. No left ventricle thrombus noted on this study. RIGHT VENTRICLE The right ventricle is normal size The right ventricular systolic function is normal. ATRIA The left atrium size is normal. The right atrium size is normal. AORTIC VALVE The aortic valve is mildly to moderately sclerotic. The aortic valve is trileaflet. There is mild aortic regurgitation. There is no aortic valvular stenosis. There is no aortic valvular vegetation. MITRAL VALVE Mitral annular calcification is moderate. There is no evidence of mitral valve prolapse. There is no mitral valve stenosis. There is no mitral valve regurgitation noted. TRICUSPID VALVE The tricuspid valve is normal in structure. There is mild tricuspid regurgitation. Right ventricular systolic pressure is estimated at less than 30 mmHg. There is no pulmonary hypertension. There is no tricuspid valve prolapse or vegetation. There is no tricuspid valve stenosis. PULMONIC VALVE The pulmonic valve is not well visualized. There is no pulmonic valvular regurgitation. GREAT VESSELS The aortic root is normal in size. The IVC is normal in size and collapses >50% with inspiration. PERICARDIAL EFFUSION There is no pericardial effusion. There is no pleural effusion. <Conclusion> The left ventricle is normal size. Left ventricle systolic function is normal. The Ejection Fraction is >70%. The left ventricular diastolic function is abnormal. The right ventricle is normal size The right ventricular systolic function is normal. The left atrium size is normal. The right atrium size is normal. There is mild aortic regurgitation. There is mild tricuspid regurgitation.
[2017-06-09 23:41] VITALS: O2SAT 96
[2017-06-10] MEDS: Morphine 4 MG/ML VIAL IV PRN ×2 (00:22→05:36)
[2017-06-10 07:23] VITALS: BP 112/72; RESP 18; TEMP 97.4
[2017-06-10 07:37] LABS: BASO % 0.7 % (0.0-2.0); EOS # 0.2 K/uL (0.0-0.7); EOS % 2.8 % (0.0-4.0); HEMOGLOBIN 11.7 g/dL (11.0-16.0); LYMPH # 2.3 K/uL (1.0-4.3); LYMPH % 34.8 % (20.0-40.0); MEAN CORPUSCULAR HEMOGLOBIN 28.3 pg (27.0-31.0); MEAN CORPUSCULAR HGB CONC 33.7 g/dL (33.0-37.0); MEAN PLATELET VOLUME 8.3 fL (7.2-11.7); MONO # 0.6 K/uL (0.0-0.8); MONO % 8.3 % (0.0-10.0); NEUT # 3.6 K/uL (1.8-7.0); NEUT % 53.4 % (50.0-75.0); RBC 4.12 Mil/uL (3.80-5.20); WHITE BLOOD COUNT 6.7 K/uL (4.8-10.8)
[2017-06-10 07:59] LABS: ALB/GLOB RATIO 1.1 (1.0-2.1); ALBUMIN 3.4 g/dL (3.5-5.0); ALT/SGPT 25 U/L (9-52); AST/SGOT 23 U/L (14-36); BLOOD UREA NITROGEN 15 mg/dL (7-17); CALCIUM 8.5 mg/dl (8.6-10.4); GFR AFRICAN-AMERICAN > 60; GFR NON-AFRICAN AMERICAN > 60
[2017-06-10 08:31] VITALS: PULSE 68
[2017-06-10] MEDS: Pantoprazole 40 mg EC Tab PO SCH (09:27)
[2017-06-10] MEDS: Bisoprolol-HCTZ 2.5-6.25 mg Tab PO SCH (09:27)
--- NOTE | 2017-06-10 09:49 | CP.PCM.PN ---
Subjective - Date & Time of Evaluation Date of Evaluation: 06/10/17 Time of Evaluation: 07:15 - Subjective Subjective: Medicine progress note ( Dr. Bullock's service) Patient was seen and examined at bedside. Patient admits to significant improvement with intermittent chest pain. Patient denies fever, chills, SOB, nausea, vomiting, diaphoresis, headache, blurry vision and numbness and tingling but admits to back pain. Patient is s/p cardiac catherization POD # 1; patient tolerated procedure well with no acute issue Objective - Vital Signs/Intake and Output Vital Signs (last 24 hours): Temp Pulse Resp BP Pulse Ox 97.4 F L 68 18 112/72 96 06/10/17 07:00 06/10/17 07:15 06/10/17 07:00 06/10/17 07:00 06/10/17 07:00 Intake and Output: 06/10/17 06/10/17 06:59 18:59 Intake Total 360 Output Total 200 Balance 160 - Medications Medications: Current Medications Acetaminophen (Tylenol 325mg Tab) 650 mg PO Q6 PRN PRN Reason: Pain, Mild (1-3) Last Admin: 06/09/17 03:15 Dose: 650 mg Amlodipine Besylate (Norvasc) 5 mg PO DAILY [facility] Last Admin: 06/10/17 09:26 Dose: 5 mg Bisoprolol Fumarate/HCTZ (Ziac 2.5-6.25 Mg) 1 tab PO DAILY [facility] Last Admin: 06/10/17 09:27 Dose: 1 tab Docusate Sodium (Colace) 100 mg PO BID [facility] Last Admin: 06/10/17 09:27 Dose: 100 mg Enoxaparin Sodium (Lovenox) 40 mg SC DAILY [facility] Last Admin: 06/10/17 09:27 Dose: 40 mg Sodium Chloride (Sodium Chloride 0.45%) 1,000 mls @ 80 mls/hr IV .[id number] [facility] Stop: 06/10/17 23:59 Lisinopril (Zestril) 20 mg PO DAILY [facility] Last Admin: 06/10/17 09:27 Dose: 20 mg Morphine Sulfate (Morphine) 2 mg IV Q6 PRN PRN Reason: Other Last Admin: 06/10/17 05:36 Dose: 2 mg Nitroglycerin (Nitrostat Sl Tab) 0.4 mg SL Q5M PRN PRN Reason: Other Pantoprazole Sodium (Protonix Ec Tab) 40 mg PO DAILY [facility] Last Admin: 06/10/17 09:27 Dose: 40 mg Rosuvastatin Calcium (Crestor) 5 mg PO HS [facility] Last Admin: 06/09/17 22:00 Dose: 5 mg - Labs Labs: 06/10/17 07:30 06/10/17 07:30 PT 11.4 SECONDS (9.7-12.2) 06/09/17 07:21 INR 1.0 06/09/17 07:21 APTT 59 SECONDS (21-34) H D 06/09/17 07:21 Assessment and Plan (1) Non-ST elevated myocardial infarction Status: Acute (2) Hypertension Status: Acute (3) Hyperlipidemia Status: Acute (4) Glucose intolerance (impaired glucose tolerance) Status: Acute (5) Constipation Status: Acute (6) History of anxiety Status: Acute (7) Prophylactic measure Status: Acute
[2017-06-10] MEDS ORDERED: Enoxaparin 40 mg Syringe SC SCH (10:00)
--- NOTE | 2017-06-10 10:31 | PCM.PSYCH ---
Initial Psychiatric Evaluation - Initial Psychiatric Evaluation Type of Admission: Voluntary Legal Status: Capacity Chief Complaint (in patient's own words): Consult for Anxiety History of Present Illness and Precipitating Events: Patient seen, chart reviewed, and discussed with staff. This is a 66 year old female, who lives with her , who came to the ED on 06/08/2017 for chest pain and difficulty breathing. Patient was found to have an NSTEMI and admitted to the hospital. According to medical team, patient has been very anxious since admission. Patient states she has had anxiety for many years. She states her anxiety has worsened recently because her son and daughter are currently having a disagreement. She states she also gets anxious and sometimes depressed when her daughter is far away. Her daughter states that she has a panic attack daily. Patient states she has trouble sleeping and sometimes will stay up all night. When she does not sleep, she feels horrible the next day. Patient states she has tried medication for sleep, such as Trazadone and Ambien, but they make the anxiety worse. She sometimes has racing thoughts that keep her up at night. Patient denies suicidal ideation, hallucinations, or paranoia. Patient denies psychiatric hospitalizations. She states she has never seen a psychiatrist for her anxiety before. medical history; HTN, Hyperlipidemia, anxiety psych history: anxiety Social history: Lives with her ; has two grown children. Social drinker, will occasionally drink a glass of wine. Denies illicit drug use and tobacco use. Consumes caffeine daily. Current Medications: Active Medications Generic Name Dose Route Start Last Admin Trade Name Freq PRN Reason Stop Dose Admin Acetaminophen 650 mg 06/08/17 20:58 06/09/17 03:15 Tylenol 325mg Tab PO 650 mg Q6 PRN Administration Pain, Mild (1-3) Amlodipine Besylate 5 mg 06/08/17 10:00 06/10/17 09:26 Norvasc PO 5 mg DAILY [facility] Administration Bisoprolol Fumarate/HCTZ 1 tab 06/08/17 10:00 06/10/17 09:27 Ziac 2.5-6.25 Mg PO 1 tab DAILY [facility] Administration Docusate Sodium 100 mg 06/09/17 10:00 06/10/17 09:27 Colace PO 100 mg BID [facility] Administration Enoxaparin Sodium 40 mg 06/10/17 10:00 06/10/17 09:27 Lovenox SC 40 mg DAILY [facility] Administration Sodium Chloride 1,000 mls @ 80 mls/hr 06/09/17 17:15 Sodium Chloride 0.45% IV 06/10/17 23:59 .[id number] [facility] Lisinopril 20 mg 06/08/17 10:00 06/10/17 09:27 Zestril PO 20 mg DAILY [facility] Administration Morphine Sulfate 2 mg 06/08/17 13:59 06/10/17 05:36 Morphine IV 2 mg Q6 PRN Administration Other Nitroglycerin 0.4 mg 06/08/17 13:57 Nitrostat Sl Tab SL Q5M PRN Other Pantoprazole Sodium 40 mg 06/08/17 10:00 06/10/17 09:27 Protonix Ec Tab PO 40 mg DAILY [facility] Administration Rosuvastatin Calcium 5 mg 06/08/17 22:00 06/09/17 22:00 Crestor PO 5 mg HS [facility] Administration Past Psychiatric History - Past Psychiatric History Previous Treatment History: None Pertinent Medical Hx (Current Medical&Sleep Prob, Allergies): Allergies Allergy/AdvReac Type Severity Reaction Status Date / Time No Known Allergies Allergy Unverified 06/08/17 01:51 Ibuprofen [Motrin Tab] 800 mg PO DAILY 08/09/14 Amlodipine Besylate/Benazepril [Amlodipine Besylate and Benazepril HCl 5 mg-4] 1 cap PO DAILY 06/08/17 Atorvastatin [Lipitor] 20 mg PO DAILY 06/08/17 Bisoprolol/HCTZ [Ziac 2.5-6.25 mg] 1 tab PO DAILY 06/08/17 Dexlansoprazole [Dexilant] 1 cap PO DAILY 06/08/17 Review of Systems - Review of Systems All systems: reviewed and no additional remarkable complaints except - Psychiatric Psychiatric: Anxiety, Irritability. absent: Hallucinations, Paranoia, Suicidal Ideation Mental Status Examination - Personal Presentation Personal Presentation: Looks stated age - Affect Affect: Constricted - Motor Activity Motor Activity: Calm - Reliability in Providing Information Reliability in Providing Information: Good - Speech Speech: Organized - Mood Mood: Anxious - Formal Thought Process Formal Thought Process: No Impairment - Obsessions/Compulsions Obsessions: No Compulsions: No - Cognitive Functions Orientation: Person, Place, Situation, Time Sensorium: Alert Attention/Concentration: Attentive Abstract Thinking: [place] Estimate of Intelligence: Below average Judgement: Intact, as evidence by: Good judgement, Intact, as evidence by: Insight regarding need for hospitalization - Risk Risk: Diminished functioning - Strength & Assets Inventory Strength & Assets Inventory: Family support DSM 5 DX - DSM 5 DSM 5 Diagnosis: Bipolar 2 depressed moderate Generalized anxiety disorder - Recommended/Plan of Treatment Treatment Recommendations and Plan of Treatment: Pt psychiatrically stable and clear for discharge.
--- NOTE | 2017-06-10 13:20 | CP.PCM.DIS ---
Provider - Provider Date of Admission: 06/08/17 03:08 Attending physician: Miguelito Up MD Time Spent in preparation of Discharge (in minutes): 35 Diagnosis - Discharge Diagnosis (1) Non-ST elevated myocardial infarction Status: Acute (2) Hypertension Status: Chronic (3) Hyperlipidemia Status: Chronic (4) Glucose intolerance (impaired glucose tolerance) Status: Acute (5) Constipation Status: Acute (6) History of anxiety Status: Chronic (7) Prophylactic measure Status: Acute Hospital Course - Lab Results Lab Results: Most Recent Lab Values WBC 6.7 K/uL (4.8-10.8) 06/10/17 07:30 RBC 4.12 Mil/uL (3.80-5.20) 06/10/17 07:30 Hgb 11.7 g/dL (11.0-16.0) 06/10/17 07:30 Hct 34.6 % (34.0-47.0) 06/10/17 07:30 MCV 84.0 fL (81.0-99.0) 06/10/17 07:30 MCH 28.3 pg (27.0-31.0) 06/10/17 07:30 MCHC 33.7 g/dL (33.0-37.0) 06/10/17 07:30 RDW 15.0 % (11.5-14.5) H 06/10/17 07:30 Plt Count 270 K/uL (130-400) 06/10/17 07:30 MPV 8.3 fL (7.2-11.7) 06/10/17 07:30 Neut % (Auto) 53.4 % (50.0-75.0) 06/10/17 07:30 Lymph % (Auto) 34.8 % (20.0-40.0) 06/10/17 07:30 [place] % (Auto) 8.3 % (0.0-10.0) 06/10/17 07:30 Eos % (Auto) 2.8 % (0.0-4.0) 06/10/17 07:30 Baso % (Auto) 0.7 % (0.0-2.0) 06/10/17 07:30 Neut # (Auto) 3.6 K/uL (1.8-7.0) 06/10/17 07:30 Lymph # (Auto) 2.3 K/uL (1.0-4.3) 06/10/17 07:30 [place] # (Auto) 0.6 K/uL (0.0-0.8) 06/10/17 07:30 Eos # (Auto) 0.2 K/uL (0.0-0.7) 06/10/17 07:30 Baso # (Auto) 0.0 K/uL (0.0-0.2) 06/10/17 07:30 PT 11.4 SECONDS (9.7-12.2) 06/09/17 07:21 INR 1.0 06/09/17 07:21 APTT 59 SECONDS (21-34) H D 06/09/17 07:21 Sodium 142 mmol/L (132-148) 06/10/17 07:30 Potassium 4.1 mmol/L (3.6-5.2) 06/10/17 07:30 Chloride 107 mmol/L (98-107) 06/10/17 07:30 Carbon Dioxide 27 mmol/L (22-30) 06/10/17 07:30 Anion Gap 13 (10-20) 06/10/17 07:30 BUN 15 mg/dL (7-17) 06/10/17 07:30 Creatinine 0.9 mg/dL (0.7-1.2) 06/10/17 07:30 Est GFR ( Amer) > 60 06/10/17 07:30 Est GFR (Non-Af Amer) > 60 06/10/17 07:30 Random Glucose 84 mg/dL (65-105) 06/10/17 07:30 Hemoglobin A1c 6.0 % (4.2-6.5) 06/09/17 07:21 Calcium 8.5 mg/dl (8.6-10.4) L 06/10/17 07:30 Phosphorus 4.7 mg/dL (2.5-4.5) H 06/10/17 07:30 Magnesium 2.1 mg/dL (1.6-2.3) 06/10/17 07:30 Total Bilirubin 0.4 mg/dL (0.2-1.3) 06/10/17 07:30 AST 23 U/L (14-36) 06/10/17 07:30 ALT 25 U/L (9-52) 06/10/17 07:30 Alkaline Phosphatase 97 U/L (38-126) 06/10/17 07:30 Total Creatine Kinase 253 U/L (30-135) H 06/08/17 15:51 CK-MB (Mass) 2.77 ng/mL (0.0-3.38) 06/08/17 15:51 Troponin I 0.2200 ng/mL (0.00-0.120) H* 06/08/17 15:51 NT-Pro-B Natriuret Pep 102 pg/mL (0-900) 06/08/17 02:20 Total Protein 6.5 g/dL (6.3-8.3) 06/10/17 07:30 Albumin 3.4 g/dL (3.5-5.0) L 06/10/17 07:30 Globulin 3.1 gm/dL (2.2-3.9) 06/10/17 07:30 Albumin/Globulin Ratio 1.1 (1.0-2.1) 06/10/17 07:30 Triglycerides 124 mg/dL (0-149) 06/09/17 07:21 Cholesterol 136 mg/dL (0-199) 06/09/17 07:21 LDL Cholesterol Direct 77 mg/dL (0-129) 06/09/17 07:21 HDL Cholesterol 36 mg/dL (30-70) 06/09/17 07:21 Free T4 1.21 ng/dL (0.78-2.19) 06/09/17 07:21 TSH 3rd Generation 1.37 mIU/L (0.46-4.68) 06/09/17 07:21 Urine Color Colorless (YELLOW) 06/08/17 01:59 Urine Clarity Clear (Clear) 06/08/17 01:59 Urine pH 6.0 (5.0-8.0) 06/08/17 01:59 Ur Specific [place] 1.001 (1.003-1.030) L 06/08/17 01:59 Urine Protein Negative mg/dL (NEGATIVE) 06/08/17 01:59 Urine Glucose (UA) Normal mg/dL (Normal) 06/08/17 01:59 Urine Ketones Negative mg/dL (NEGATIVE) 06/08/17 01:59 Urine Blood Negative (NEGATIVE) 06/08/17 01:59 Urine Nitrate Negative (NEGATIVE) 06/08/17 01:59 Urine Bilirubin Negative (NEGATIVE) 06/08/17 01:59 Urine Urobilinogen Normal mg/dL (0.2-1.0) 06/08/17 01:59 Ur Leukocyte Esterase Trace [place]/uL (Negative) 06/08/17 01:59 Urine WBC (Auto) 1 /hpf (0-5) 06/08/17 01:59 Urine RBC (Auto) < 1 /hpf (0-3) 06/08/17 01:59 Urine Bacteria Rare (<OCC) 06/08/17 01:59 - Hospital Course Hospital Course: HPI (as per admission): 66 year old female with history of hypertension, hyperlipidemia and anxiety presents to the ED today complains of left sided chest pain. Patient reports her chest pain started this afternoon after 4pm when she was moving some furnitures at home. She describes the pain as burning in quality, radiates to her mid chest and left arm. Patient took aspirin and Dexilant at home which did not alleviate the pain. The chest became worse around 11pm which prompted patient to come to the ED. She had a stress test done many years ago and it was negative. Patient also reports to have shortness of breath associated with this chest pain, but she is unsure of its her anxiety or the chest pain that is causing the symptom. Patient denies headache, dizziness, fever, chills, nausea, vomiting or urinary symptoms. Hospital Course: Patient was admitted with the diagnosis of NSTEMI. 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 Hyman was consulted, who recommended appropriate chemical management as well as cardiac catherization. On 06/09/17, patient had cardiac catherization done, which showed normal EF and normal coronaries as by documentation. In addition, Psychiatry, Dr. Mccall was consulted for patient's history of anxiety, who diagnosed patient with Bipolar 2 depressed moderate Generalized anxiety disorder after initial interview; patient was started on Atarax 25mg PO QID. In addition, patient was noted to have impaired glucose tolerance with HgbA1C of 6.0, patient was counselled on lifestyle modification. Over the course of admission, patient remained clinically stable without any acute events. Patient was deemed stable upon discharge and was given appropriate discharge instructions. Pertinent labs/imaging and procedure: Echocardiogram (06/09/17): The left ventricle is normal. EF> 70%. Left ventricular diastolic function is abnormal. The right ventricle size and systolic function is normal. The left and right atrium size is normal. There is mild aortic and triscuspid regurgitation. Chest X-ray (06/08/17): Mild venous congestion. Biapical pleural thickening with upper lobe granulomatous changes. Small nodular density at the right lung base may represent prominent vessel on end. Tortuous ectatic aorta. Calcification at the aortic knob. Top normal heart size. -EKG (06/08/17): No ST elevation appreciated, slight T wave inversion on lead 3 Troponin: 0.2070-->0.1800--->0.220 Lipid panel: TGL: 124, Chol: 136, LDL:77, HDL:36 TSH/Free T4: 1.37/1.21 Hgb A1C: 6.0 -EKG (06/08/17): No ST elevation appreciated, slight T wave inversion on lead 3 Discharge Exam - Head Exam Head Exam: ATRAUMATIC - Eye Exam Eye Exam: EOMI, Normal appearance - ENT Exam ENT Exam: Mucous Membranes Moist - Respiratory Exam Respiratory Exam: Clear to PA & Lateral, NORMAL BREATHING PATTERN. absent: Prolonged Expiratory Phase, Wheezes, Respiratory Distress - Cardiovascular Exam Cardiovascular Exam: REGULAR RHYTHM, +S1, +S2. absent: Systolic Murmur - GI/Abdominal Exam GI & Abdominal Exam: Normal Bowel Sounds, Soft. absent: Diminished Bowel Sounds , Distended, Firm, Guarding, Tenderness - Extremities Exam Extremities exam: normal inspection Additional comments: S/p cardiac catherization POD #1 Left groin dressing is clean, dry and intact. No noted hematoma Right radial wrist dressing is clean, dry and intact - Neurological Exam Neurological exam: Alert, Oriented x3 - Psychiatric Exam Psychiatric exam: Anxious, Normal Affect - Skin Skin Exam: Normal Color Discharge Plan - Discharge Medications Prescriptions: Amlodipine Besylate/Benazepril [Amlodipine-Benazepril 5-40 mg] 1 cap PO DAILY # 30 capsule Aspirin 81 mg PO DAILY #30 tab.chew Atorvastatin [Lipitor] 20 mg PO DAILY #30 tab Bisoprolol/HCTZ [Ziac 2.5-6.25 mg] 1 tab PO DAILY #30 tab Dexlansoprazole [Dexilant] 1 cap PO DAILY #30 cap.dr.bp hydrOXYzine HCl [Atarax] 50 mg PO QID PRN #30 tab PRN Reason: Anxiety - Follow Up Plan Condition: FAIR Disposition: HOME/ ROUTINE Instructions: Anxiety, Adult (DC), Heart Attack (DC), Chest Pain (DC), Aspirin , Hydroxyzine, Constipation (DC), Hypertension (DC) Additional Instructions: Please discharge patient home Please resume all your home medications as prescribed by your PMD: 1. Dexilant 60mg (1 cap) PO DAILY 2. Ziac 2.5-6.25MG PO daily 3. Lipitor 20mg PO HS 4. Amlodipine-Benazepril 5-40mg (1 cap) PO daily Please start the following new medications: 1. Aspirin 81mg PO daily 2. Atarax 50mg PO QID as needed for anxiety Please exercise daily; walking for 10-15 minutes daily Please follow up with your PMD in approximately 1 week from discharge Please follow up with your PMD for psychiatry referral for severe anxiety Please follow up with Dr. Luis Manuel Hyman in order to establish cardiology care Please take care
--- NOTE | 2017-06-11 06:13 | CP.PCM.PN ---
Subjective - Date & Time of Evaluation Date of Evaluation: 06/10/17 Time of Evaluation: 08:30 - Subjective Subjective: Patient seen and evaluated denies chest pain and dyspnea Normal Coronaries and normal EF DM 2 HTN and Hyperlipidemia Medical management Objective - Vital Signs/Intake and Output Vital Signs (last 24 hours): Temp Pulse Resp BP Pulse Ox 97.4 F L 68 18 112/72 96 06/10/17 07:00 06/10/17 07:15 06/10/17 07:00 06/10/17 07:00 06/10/17 07:00 - Labs Labs: 06/10/17 07:30 06/10/17 07:30 PT 11.4 SECONDS (9.7-12.2) 06/09/17 07:21 INR 1.0 06/09/17 07:21 APTT 59 SECONDS (21-34) H D 06/09/17 07:21
--- NOTE | 2017-06-14 21:49 | CARD ---
APPROVED REPORT EKG Measurement Heart [id number] <Conclusion> Normal sinus rhythm Voltage criteria for left ventricular hypertrophy Nonspecific T wave abnormality Abnormal ECG
--- NOTE | 2017-06-14 22:46 | CARDCATH ---
PROCEDURE DATE: 06/09/2017 PROCEDURES: 1. Left heart catheterization. 2. Coronary angiogram. 3. Aortic root angiogram. PERFORMING PHYSICIAN: Luis Manuel Hyman MD CLINICAL INDICATIONS: 1. Chest pain. 2. Elevated troponins. 3. Hypertension. 4. Hyperlipidemia. 5. Obesity. PROCEDURE: After informed consent, the patient was prepped and draped in the usual sterile fashion. A 2% lidocaine was given in the right wrist for local anesthesia. However, cardiac cath could not be performed via the right radial due to tortuosity of the right subclavian artery. Then the side was switched to right groin. A 2% lidocaine was given in the right groin for local anesthesia. Using micropuncture technique, a 6-[place] sheath was introduced into the right common femoral artery. A 6-[place] JL4 diagnostic catheter engaged into the left main coronary artery. Contrast injected and left coronary angiogram was performed. Then 6-[place] JR4 diagnostic catheter crossed into the left ventricle across the aortic valve. LV end-diastolic pressure was measured. Contrast injected and LV angiogram was done. The catheter was pulled back across the aortic valve. Gradient across the aortic valve was measured. Then the same catheter was engaged into the right coronary artery. Contrast injected and right coronary angiogram was performed. The patient tolerated the procedure well. Radiological supervision and radiological interpretation of the cardiac cath and coronary angiogram was done. Also, due to the history of chest pain radiating to back, aortic root angiogram was performed. FINDINGS: 1. Left main coronary artery is patent. 2. LAD and diagonal branches are patent. 3. Left circumflex and obtuse marginal branches are patent. 4. Right coronary artery is dominant and patent. 5. LV ejection fraction is approximately 65%. EDP is 25. No gradient across the aortic valve. 6. Aortic root angiogram demonstrated normal ascending aorta. No aneurysm or dissection noted. CONCLUSION: 1. Normal aortic root angiogram. 2. Normal coronaries. 3. Normal left ventricular systolic function. Recommend medical management including risk factor modification. Luis Manuel Hyman MD
== END 2017-06-10 15:25 | disposition home or self-care (01) | DRG 281 ==
LOC: C.ER 01:36 → C.9E 03:08 → C.5S 13:27
PROVIDERS: ADMIT Internal Medicine; ATTEND Internal Medicine
PROC: 4A023N7 Measurement of Cardiac Sampling and Pressure, Left Heart, Percutaneous Approach (ICD-10-PCS; principal; 2017-06-09)
PROC: B2111ZZ Fluoroscopy of Multiple Coronary Arteries using Low Osmolar Contrast (ICD-10-PCS; 2017-06-09)
PROC: B3101ZZ Fluoroscopy of Thoracic Aorta using Low Osmolar Contrast (ICD-10-PCS; 2017-06-09)
DX: I21.4 Non-ST elevation (NSTEMI) myocardial infarction (principal); F31.81 Bipolar II disorder; I10 Essential (primary) hypertension; K59.00 Constipation, unspecified; R73.02 Impaired glucose tolerance (oral); F41.1 Generalized anxiety disorder; E78.00 Pure hypercholesterolemia, unspecified; Z96.651 Presence of right artificial knee joint; E66.9 Obesity, unspecified; I77.819 Aortic ectasia, unspecified site; K21.9 Gastro-esophageal reflux disease without esophagitis